=== PATIENT | female | born 1960 | race Caucasian/White ===

== ENCOUNTER 2018-06-11 03:25 | Emergency (ER) | payer BC, SELFPAY ==
[2018-06-11 03:26] VITALS: BP 159/104; PULSE 86; RESP 16; TEMP 36.7; O2SAT 96; BMI 28.6
[2018-06-11 03:30] VITALS: BP 145/100; PULSE 88; O2SAT 95
--- NOTE | 2018-06-11 04:26 | ED.VISSUMM ---
- ER Visit Summary Date of Service: 06/11/18 Chief Complaint: [] Lower leg pain and swelling with tingling History of Present Illness: The patient is a 58 F awoke with left lower calf swelling and foot swelling and tingling over the last 2-1/2 hours. It is getting better. It was much worse when she woke up per patient. She still has some tingling. She is never had this before. No history of DVT. No history of stroke or TIA. She had an patient CT angios for incidental finding on her spleen yesterday. She does not think that had do with anything in her left leg. Physical Examination: [] Vital signs reviewed General: Well-nourished well-developed Head: Normocephalic atraumatic Eyes: Pupils equal round and reactive to light extraocular movements intact ENT: TMs clear no hemotympanum no trauma Neck: Nontender full range of motion Cardiovascular: Regular rate rhythm no murmurs normal S1-S2 Respiratory: No distress clear to auscultation bilaterally chest nontender Abdomen: Soft nontender nondistended normal bowel sounds no masses Back: Nontender no CVA tenderness Extremities: Tenderness in the left calf. Positive Homans sign. Mild swelling of the left lower calf from a 1 cm more than the left on measurement. Skin: Normal color no trauma Neuro alert oriented cranial nerves II through XII intact normal strength sensation reflexes Test Results: [] Emergency Department Course and Treatment: [] Patient will have to have an outpatient ultrasound of her lower extremity. Have a low suspicion for stroke or TIA. She does have some numbness to this area as well. She has some pain in Homans sign. She may have a DVT. Treatment Plan: [] Disposition: [] Impression: [] Left lower extremity pain and swelling with paresthesia This note was generated with [employer] dictation software. It may contain incorrect words, spelling, and punctuation that were not noted in review of the chart prior to signing ED Disposition - Plan for ED Patient: Referrals: Cara Campbell MD [Primary Care Provider] -
--- NOTE | 2018-06-11 04:29 | ED.DEP ---
ED Disposition - Plan for ED Patient: Disposition: Home or Assisted Living Instructions: ED Paraesthesias Referrals: Cara Campbell MD [Primary Care Provider] - Additional Instructions: Follow-up for your ultrasound exam this morning
[2018-06-11 04:40] VITALS: PULSE 89; RESP 20; O2SAT 97
== END 2018-06-11 04:41 | disposition home or self-care (01) ==
PROVIDERS: Emergency Provider Emergency Medicine; Family Provider Internal Medicine; PCP Internal Medicine
DX: M79.662 Pain in left lower leg (principal); M79.89 Other specified soft tissue disorders; R20.2 Paresthesia of skin
CPT/HCPCS: 99282

== ENCOUNTER → 2018-06-11 10:22 | Outpatient (CLI) | payer BC, SELFPAY ==
[2018-06-11 03:26] VITALS: BMI 28.6
== END ==
PROVIDERS: Family Provider Internal Medicine; PCP Internal Medicine; Referring Provider Emergency Medicine; Visit Provider Emergency Medicine
DX: M79.89 Other specified soft tissue disorders (principal)
CPT/HCPCS: 93971

== ENCOUNTER 2019-12-10 16:14 | Emergency (ER) | payer BC, SELFPAY ==
[2019-12-10 16:16] VITALS: BP 151/104; PULSE 105; RESP 20; TEMP 37.6; O2SAT 98; BMI 27.9
--- NOTE | 2019-12-10 16:30 | ED.DCSUM_ITS ---
History of Present Illness Chief Complaint: Headache Detail of Chief Complaint: Neck and right lower back pinching severe pain Informant: Patient Onset: Hours - The pinching severe back pain started hours prior to presentation. She was rolling in bed., Days - Headache is been present for 3 days worse this morning. Context: Gradual Onset - Headache, Sudden Onset - Back pain Timing: Continuous - Headache is been continuous since onset. Back pain has improved markedly. Quality: Pain superior posterior neck/occiput Location: Right lower back Current Severity: Moderate Maximum Severity: Severe Worsened by: Back pain due to movement, headache nothing Relieved by: Nothing Associated Symptoms: Nausea Narrative: Patient is a middle-age woman who presents with headache for the past several days. The reason she presents to the emergency department because she developed severe right low back pain rolling in bed. She denies fever, chills night sweats. Denies double vision, blurred vision loss of vision. Denies p hotophobia. Denies photophobia. She states she is had back pain since her neck fusion. Neck fusion at multiple levels. She denies trouble with speech or swallowing. She complains of a full sensation in her superior anterior chest. This is not a new symptom. She denies shortness of breath. She does report nausea without vomiting diarrhea. She denies urologic symptoms. There is no history of renal ureterolithiasis. She denies radicular pain. There is no history of bowel or bladder dysfunction. Prior similar symptoms: Yes - With regards to the headache Recent Illness/Hospitalization: No - Past Medical History (1) Migraine headache Status: Acute Past Medical History - Allergies and Home Meds Allergies/Adverse Reactions: Allergies levofloxacin [From Levaquin] Allergy (Verified 10/21/15 12:43) Anaphylaxis Primary Care Physician: Cara Campbell MD [Primary Care Provider] - Prior records reviewed: Yes Surgical History: - - Cervical neck fusion Lives: Alone Smoking Status: Unknown if ever smoked Alcohol: None Drugs: None Review of Systems General: Denies: Chills, Fever, Malaise Eyes: Denies: Visual changes - bilaterally, Blurred Vision - bilaterally, Diplopia ENT: Denies: Rhinorrhea, Sore throat Cardiovascular: Reports: Chest pain - Please read HPI. Denies: Palpitations Respiratory: Denies: Dyspnea, Cough, Dyspnea on exertion Gastrointestinal: Reports: Nausea. Denies: Abdominal pain, Vomiting, Diarrhea Genitourinary: Denies: Dysuria, Hematuria, Frequency Musculoskeletal: Reports: Neck pain, Back pain. Denies: Myalgias, Arthralgias, Swelling, Extremity Pain, -, - Neurological: Reports: Headache. Denies: Weakness, Parasthesia, Numbness, -, - Endocrine: Denies: Polyuria, Polydipsia Hematologic: Denies: Easy bruising, Easy bleeding Physical Exam Vital Signs/Narrative: Vital Signs Temp Pulse Resp BP Pulse Ox 12/10/19 16:16 99.6 F H 105 H 20 H 151/104 H 98 Inital Vital Signs reviewed: Yes General: Well nourished, Well developed, No Acute Distress, - - Patient is very hard of hearing. Head: Normocephalic, Atraumatic Eyes: Perrl, EOMI. Negative for: Pale conjunctiva, Scleral icterus ENT: Moist mucous membranes, No rhinorrhea, TM's clear. Negative for: Dry mucous membranes, Nasal congestion Neck: Supple - Limited range of motion due to fusion., No lymphadenopathy, No JVD. Negative for: Nontender - Tenderness near the occiput. Cardiovascular: Regular rate, Regular rhythm, No murmurs, Normal S1, Normal S2 Respiratory: No distress, CTA bilaterally, Chest nontender Abdomen: Soft, Nontender, Nondistended Back: Nontender, Normal Inspection. Negative for: CVA tenderness Extremities: Nontender, No edema Skin: Normal color, No rash Neurological: Alert, Oriented x3, Cranial nerves II-XII grossly intact, Normal Strength, Normal Sensation, Normal DTR Psychological: - - Flat affect Diagnostic/Tx/Re-eval - Medical Decision Making Back pain is most likely musculoskeletal. Since she has no objective findings at this time no imaging or laboratory testing was ordered. Since she has history of migraines and this is prolonged we will treat with 25 mg of Benadryl, 10 mg of Reglan and 50 mg of Toradol IV push. Plan is to reassess in 30 to 60 minutes. Patient reports marked improvement. She would like to go home. I was informed of this by her nurse. Plan is to discharge to home ED Disposition - Plan for ED Patient: Disposition: Home or Assisted Living Diagnosis: Status migrainosus without intractable migraine, Back pain without radiculopathy Instructions: ED, Migraine (Classical), ED Back Care Tips, ED Back Pain Acute or Chronic Referrals: Cara Campbell MD [Primary Care Provider] - As Needed
[2019-12-10] MEDS: Ketorolac 30 MG/ML Syringe 15 MG IV (16:36)
[2019-12-10] MEDS: DiphenhydrAMINE 50 MG/ML Syringe 25 MG IV (16:37)
[2019-12-10] MEDS: Metoclopramide 10 MG/2 ML Vial IV (16:39)
[2019-12-10 18:04] VITALS: BP 118/74; PULSE 92; RESP 18
[2019-12-10 18:30] VITALS: PULSE 96
== END 2019-12-10 18:44 | disposition home or self-care (01) ==
LOC: ED 17:55
PROVIDERS: Emergency Provider Emergency Medicine; PCP Internal Medicine
DX: G43.901 Migraine, unspecified, not intractable, with status migrainosus (principal); M54.5 Low back pain
CPT/HCPCS: 96374; 96375; 99285; A4216

== ENCOUNTER → 2020-05-07 13:11 | Outpatient (CLI) | payer BC, SELFPAY ==
--- NOTE | 2020-05-07 13:13 | EKG12_ITS ---
Test Reason : PREOP Blood Pressure : / mmHG Vent. Rate : 102 BPM Atrial Rate : 102 BPM P-R Int : 164 ms QRS Dur : 076 ms QT Int : 340 ms P-R-T Axes : 067 062 059 degrees QTc Int : 443 ms Sinus tachycardia Otherwise normal ECG Confirmed by ARON WEATHERS, PRATIK ([id number]), editor farm journal GILA BEGUM ([id number]) on 05/08/2020 8:24:16 AM Referred By: Naresh Fernandez Confirmed By:PRATIK SHARP MD
[2020-05-07 14:45] LABS: Hematocrit 39.5 % (37-47); Hemoglobin 12.8 g/dL (12.0-15.0); Mean Corp Hgb Conc 32.4 g/dL (32-36); Mean Corpuscular Hgb 29.8 pg (27.0-32.0); Mean Corpuscular Volume 92.1 fL (81-99); Mean Platelet Vol. 10.3 fl (6.2-12.0); Platelet Count 340 K/mm3 (150-450); RBC Distribution Width SD 43.8 fl (35.1-43.9); Red Blood Count 4.29 M/mm3 (4.2-5.4); White Blood Count 7.7 K/mm3 (4.4-11.0)
[2020-05-07 15:09] LABS: Anion Gap 5 (5-15); BUN 21 mg/dL (7-18); BUN/Creat Ratio 27.6 RATIO (10-20); Calcium,Total 8.7 mg/dL (8.5-10.1); Chloride 106 mmol/L (98-107); Creatinine, Serum 0.76 mg/dL (0.55-1.02); EST Glomerular Filtration Rate 83 mL/min (>60); Est Glom Filt Rate - Afr Amer 100 mL/min (>60); Glucose 94 mg/dL (74-106); Potassium 3.4 mmol/L (3.5-5.1); Sodium Level 142 mmol/L (136-145)
== END ==
PROVIDERS: PCP Internal Medicine; Referring Provider Orthopaedic Surgery; Visit Provider Orthopaedic Surgery
DX: Z01.818 Encounter for other preprocedural examination (principal)
CPT/HCPCS: 36415; 80048; 85027; 93005

== ENCOUNTER → 2020-09-18 14:44 | Outpatient (CLI) | payer BC, SELFPAY ==
[2020-09-18 18:07] LABS: Creatinine, Serum 0.87 mg/dL (0.55-1.02); EST Glomerular Filtration Rate 71 mL/min (>60); Est Glom Filt Rate - Afr Amer 86 mL/min (>60)
== END ==
PROVIDERS: PCP Internal Medicine; Referring Provider Orthopaedic Surgery; Visit Provider Orthopaedic Surgery
DX: M25.511 Pain in right shoulder (principal); N28.9 Disorder of kidney and ureter, unspecified
CPT/HCPCS: 36415; 82565

== ENCOUNTER 2022-07-22 08:22 | Emergency (ER) | payer BC, SELFPAY ==
[2022-07-22 08:23] VITALS: BP 158/96; PULSE 67; RESP 14; TEMP 36.3; O2SAT 98; BMI 30.7
--- NOTE | 2022-07-22 08:41 | CT_ITS ---
STUDY: CT BRAIN WITHOUT CONTRAST REASON FOR EXAM: Female, 62 years old. Headache RADIATION DOSAGE (If Supplied By Facility): CTDIvol = ( 44.99 ) mGy, DLP = ( 829.85 ) mGycm TECHNIQUE: Transaxial CT imaging of the brain was performed without administration of intravenous contrast material. Individualized dose optimization techniques were used for this CT. COMPARISON: No relevant priors. FINDINGS: Normal soft tissue structures. Normal calvarium. Normal size ventricles and extra-axial spaces for the patient''s age. Normal white matter tracts of the cerebral hemispheres. Normal basal ganglia and thalami. Normal brainstem. Normal cerebellum. There is no intracranial hemorrhage. There are no findings of an acute ischemic infarction. Normal visualized paranasal sinuses. CT/Brain/Head without Contrast IMPRESSION: Normal unenhanced CT scan of the brain. Electronically Signed: Elliot Santiago MD at 9:15 EDT ,
--- NOTE | 2022-07-22 08:42 | EX.ED.VIS.HA ---
HPI History of Present Illness Chief Complaint: Headache Informant: patient Onset/Context/Timing Onset: Days Context: Gradual Quality -Headache: Positive for Similar Prior Headaches and Dull Current Severity: Mild Maximum Severity: Mild Associated Symptoms/Injury Associated Symptoms: Positive for Nausea, Visual Changes and Photophobia; Negative for Fever, Vomiting, Sore Throat, Sinus Pressure, Numbness, Tingling, Preceding Aura or Visual Loss Injury - SEN: Negative for Direct Trauma, Fall or Assault Narrative Narrative: 62-year-old female had 1 episode of vertigo years ago does not remember much about it she has had prior cervical fusion and hysterectomy. States she gets frequent headaches. She has a history of migraines. Said on Wednesday she had a headache. Currently only dull ache behind her right eye. But she said she just feels off. Feels kind of like she has vertigo but says is not exactly like she had before. Says it feels like the room is moving. She denies any weakness in her arms or legs. She has mild nausea but no vomiting or diarrhea. No fever. She is on no blood thinners. There is no family history of intracranial bleeds or brain aneurysms. She denies any recent trauma. Prior similar symptoms: Yes Recent Illness/Hospitalization: No PFSH PFSH Home Medications fentanyl 25 mcg/hr transdermal patch 25 mcg TRANSDERM. Q48H 10/21/15 [History Last Taken Unknown] sumatriptan succinate 6 mg/0.5 mL subcutaneous solution 6 mg subcut .X1 PRN 10/21/15 [History Last Taken Unknown] labetalol 200 mg tablet 200 mg PO BID 07/22/22 [History Last Taken Unknown] methocarbamol 500 mg tablet 500 mg PO 4X/DAY 07/22/22 [History Last Taken Unknown] spironolactone 25 mg tablet 25 mg PO DAILY 07/22/22 [History Last Taken Unknown] zolpidem 10 mg tablet 10 mg PO QHS 07/22/22 [History Last Taken Unknown] Allergy/AdvReac Type Severity Reaction Status Date / Time acetaminophen Allergy Other Verified 07/22/22 08:33 [From Darvocet-N] budesonide Allergy NEEDS Verified 07/22/22 08:33 [From Rhinocort Aqua] FOLLOW-UP duloxetine [From Cymbalta] Allergy PT UNSURE Verified 07/22/22 08:33 OF REACTION escitalopram [From Lexapro] Allergy NEEDS Verified 07/22/22 08:33 FOLLOW-UP fentanyl [From Actiq] Allergy PT UNSURE Verified 07/22/22 08:33 OF REACTION fluticasone [From Flonase] Allergy PT UNSURE Verified 07/22/22 08:33 OF REACTION hydrocodone [From Vicodin] Allergy Nausea Verified 07/22/22 08:33 hydromorphone [From Dilaudid] Allergy Other Verified 07/22/22 08:33 levofloxacin [From Levaquin] Allergy Anaphylaxis Verified 10/21/15 12:43 lidocaine [From Lidoderm] Allergy NEEDS Verified 07/22/22 08:33 FOLLOW-UP methadone Allergy NEEDS Verified 07/22/22 08:33 FOLLOW-UP pramipexole [From Mirapex] Allergy NEEDS Verified 07/22/22 08:33 FOLLOW-UP pregabalin [From Lyrica] Allergy NEEDS Verified 07/22/22 08:33 FOLLOW-UP propoxyphene Allergy Other Verified 07/22/22 08:33 [From Darvocet-N] tramadol [From Ultram] Allergy NEEDS Verified 07/22/22 08:33 FOLLOW-UP Social History Smoking Status: Never smoker ROS ROS ED ROS Narrative Headache. Dizziness. Review of Systems ROS Unobtainable: Denies due to encephalopathy Constitutional Constitutional ED: Denies chills or fever(s) Eyes Eyes: Reports change in vision; Denies blurry vision ENT ENT ED: Denies ear pain Cardiovascular Cardiovascular: Denies chest pain Respiratory/Chest Respiratory/Chest: Denies cough or dyspnea Gastrointestinal Gastrointestinal: Reports nausea; Denies abdominal pain, constipation, diarrhea, melena or vomiting Genitourinary Genitourinary ED: Denies dysuria or hematuria Musculoskeletal Musculoskeletal: Denies arthralgias Integumentary Denies abscess Neurologic Neurologic: Reports headache(s); Denies paresthesias or weakness Psychiatric Psychiatric: Denies anxiety or depression Endocrine Endocrinology: Denies polydipsia or polyphagia Hematologic/Lymphatic Hematologic/Lymphatic: Denies easy bleeding Allergic/Immunologic Allergic/Immunologic ED: Denies mouth swelling EXAM Physical Exam Narrative Exam Narrative: Well-appearing 62-year-old female. Vital signs are stable afebrile. Initial blood pressure 158/96. She does not look septic or toxic. She is in no distress. H EENT exam unremarkable. Pupils round reactive light. Extra motions the patient may possibly have a internuclear ophthalmoplegia. Her right eye seems to have difficulty moving medially. No facial droop. Normal speech. No trauma to her face or head. TMs are normal bilaterally. She does have photophobia when she opens her eyes. Neck nontender. She has limited flexion extension due to a prior multilevel fusion. No meningismus. No lymphadenopathy. Lungs clear to auscultation. Heart regular rhythm no murmur. Abdomen soft nontender. Moving all 4 extremities. Neurologically she is awake and alert with no focal motor deficits. 5 of 5 transferrer strength. Dorsi plantarflexion intact. No drift of either upper or lower extremities. Fingertip to nose within normal limits. NIH score is 0. 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 Const Vital Signs: 07/22/22 08:23 07/22/22 11:39 Temperature 97.3 F L Temperature Source Oral Pulse Rate 67 72 Respiratory Rate 14 15 Blood Pressure 158/96 H 138/76 H Blood Pressure Mean 116 96 Pulse Ox 98 97 Oxygen Delivery Method Room Air Room Air Positive well nourished and well developed; Negative for cachectic, contractures or unkempt General Appearance ED: well developed and NAD; Negative for unkempt, cachectic, contractures, cyanotic or diaphoretic Nutritional Appearance: Negative for cachectic HEENT Reports normocephalic, TM's clear and moist mucous membranes; Denies dry mucous membranes atraumatic; Negative for trauma, tenderness, temporal artery tenderness or vesicular rash Face and Sinus: Negative for sinus tenderness Tympanic Membrane ED: Yes TM's clear Mouth ED: No dry mucous membranes Mouth: No dry mucous membranes Eyes PERRL; Negative for EOMs intact bilaterally Eyes Narrative: Both eyes deviate upward and downward without any difficulty. Both eyes deviate to the right without problem. The left eye appears to have possibly a 3rd nerve palsy with loss of medial deviation of the left eye only. The right eye has normal both medial and lateral deviation. Pupils are equal symmetrically in both constrict to light. There is no dilatation. Vision is improved with with 1 eye closed. General Eye ED: Negative for pale conjunctiva or scleral icterus Neck no lymphadenopathy, supple, no meningeal signs and no JVD Neck Narrative: Limited flexion extension due to multilevel fusion. General: Negative for tenderness Resp normal respiratory effort and clear to auscultation bilaterally Effort and Inspection: Negative for retractions Auscultation: Negative for rales, rhonchi or wheezes Cardio regular rate, regular rhythm, S1 normal heart sound, S2 normal heart sound and no murmurs Rate: Negative for bradycardia or tachycardic Rhythm: Negative for abnormal rhythm GI non-tender and non-distended Auscultation: normoactive bowel sounds Palpation: soft; Negative for firm, tender or guarding Back/Spine no CVA tenderness General Back: Negative for CVA tenderness Cervical Spine: Negative for cervical spine tenderness Thoracic Spine / Upper Back: Negative for thoracic spinal tenderness Lumbar Spine / Lower Back: Negative for lumbar spinal tenderness Extremity normal to inspection, full ROM and normal capillary refill General Extremety ED: Negative for edema or tenderness General Extremity: Negative for edema Neuro oriented x3, CN's II-XII intact bilaterally and no sensory deficits noted Sensorium / Orientation: awake, alert, oriented to person, oriented to place and oriented to time; Negative for orientation impaired or lethargic Coordination / Balance: [id number] test normal Speech: speech normal Motor Exam: strength 5/5 throughout Psych mental status grossly normal Appearance: Negative for unkempt Attitude: No agitated Mood & Affect: Negative for depressed, anxious or tearful Skin General Skin Exam: elasticity normal Lesions: no lesions Rashes: no rashes NIHSS NIHSS Initial: 1a Level of Consciousness: 0 1b LOC Questions (Score 2 if aphasic/stupor): 0 Total Score: 0 MDM MDM MDM Narrative Medical decision making narrative: 62-year-old female with frequent history of migraine headaches. Had a headache on Wednesday and today. But it is very similar to prior headaches and not very severe at this time. She also has some sensation of dizziness. Prior history of vertigo. Hallpike is negative at this time. Neurologic exam is normal except what appears to be a right eye palsy regarding medial movement consistent with an internuclear ophthalmoplegia. She will be treated with IV Zofran for nausea. Antivert to see if it helps her dizziness. I am going obtain a CT of her brain. I do not think she needs any lab work at this time. Discussed the patient's case with ophthalmology on-call Dr. Efraín Cunningham. We will obtain screening labs and a have ordered an MRI with and without contrast of the patient's brain for possible internuclear ophthalmoplegia. Repeat exam unchanged. Patient is doing well at 10:50 AM awaiting MRI. MRI with and without contrast was read as negative per the radiologist. I went over all of her test results with the patient and family. She will be discharged home. She will follow-up with ophthalmology in the next day or so. She knows not to drive and be careful with steps because she could easily fall. History & Record Review Discussion w/independent historian: Patient Lab Data Attestation: I reviewed the patient's lab results. Lab results narrative: CBC normal. White count of 7. H&H 12 and 38. Platelets 326. Electrolytes unremarkable gap of 6. BUN 25 creatinine 0.75. Glucose 114. CAT scan of brain was unremarkable. Labs: Laboratory Results - last 24 hr 07/22/22 07/22/22 08:26 08:26 WBC 7.3 RBC 4.12 L Hgb 12.3 Hct 38.3 MCV 93.0 MCH 29.9 MCHC 32.1 RDW Std Deviation 45.1 H RDW Coeff of Tressa 13.2 Plt Count 326 MPV 10.1 Immature Gran % (Auto) 0.300 Neut % (Auto) 64.4 Lymph % (Auto) 25.6 [place] % (Auto) 8.2 Eos % (Auto) 1.1 Baso % (Auto) 0.4 Absolute Neuts (auto) 4.7 Absolute Lymphs (auto) 1.88 Nucleated RBC % 0 Sodium 141 Potassium 4.1 Chloride 105 Carbon Dioxide 30.0 Anion Gap 6 BUN 25 H Creatinine 0.75 Estim Creat Clear Calc 71.78 Est GFR (MDRD) Af Amer 101 Est GFR (MDRD) Non-Af 83 BUN/Creatinine Ratio 33.2 H Glucose 114 H Calcium 9.2 Radiography Diagnostic Testing: Clinical Impression(s) from Imaging Studies Brain CT 07/22/22 08:41 IMPRESSION: Normal unenhanced CT scan of the brain. Electronically Signed: Elliot Santiago MD at 9:15 EDT , Brain MRI 07/22/22 10:03 IMPRESSION: Normal unenhanced and enhanced MRI of the brain. Electronically Signed: Anders Varags MD at 13:05 EDT , Discharge Plan Triage Chief Complaint: Headache ED Provider: Jonathon Bowden Dx/Rx/DC Orders Clinical Impression: Headache Prescriptions: No Action sumatriptan succinate 6 MG/0.5 ML solution 6 mg subcut .X1 PRN fentanyl 25 MCG patch 25 mcg TRANSDERM. Q48H methocarbamol 500 mg tablet 500 mg PO 4X/DAY Label Comments: TAKE 1 TABLET BY MOUTH 4 TIMES DAILY NEEDED labetalol 200 mg tablet 200 mg PO BID spironolactone 25 mg tablet 25 mg PO DAILY Label Comments: TAKE 1 TABLET BY MOUTH DAILY zolpidem 10 mg tablet 10 mg PO QHS Label Comments: TAKE 1 TABLET BY MOUTH AT NIGHT NEEDED FOR SLEEP Primary Care Provider: Cara Campbell Referrals: Cara Campbell MD [Primary Care Provider] - Efraín Cunningham MD [Med Staff - Active Staff] - As soon as possible (Call [facility] today and get set up to be seen for an appointment either today, tomorrow and no later than Wednesday. I spoke to the eye doctor that was on-call today.) Activity Restrictions/Additional Instructions: Your labs, CAT scan and MRI today were unremarkable. There is no signs of stroke nor any aneurysm nor any masses. 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 Which is basically your right eye is not moving inward as it should. The machine hose cutter will further evaluate you for this and any other eye problems. No driving at this time until this improves. Be careful on steps because you could fall. Disposition Disposition: Home, Self Care
[2022-07-22] MEDS: Ondansetron 4 MG/2 ML Vial IV (08:47)
[2022-07-22] MEDS: Meclizine HCl 25 MG Tablet PO (08:47)
--- NOTE | 2022-07-22 10:03 | MRI_ITS ---
STUDY: MRI BRAIN WITH AND WITHOUT CONTRAST REASON FOR EXAM: Female, 62 years old. 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 Attention EMIL area TECHNIQUE: Standardized multiplanar fat and water weighted pulse sequences were obtained. 16ml iv clariscan was administered for the contrast portion of the examination. COMPARISON: Head CT dated July 22, 2022 FINDINGS: Normal size of the ventricles and extra-axial spaces for the patient''s age. Normal white matter tracts of the supratentorial brain. There is no evidence for recent intracranial ischemia or other cause of cytotoxic edema on diffusion weighted imaging (DWI). Normal T2* images of the brain without demonstrated susceptibility artifact. There is no demonstrated hemosiderin stain. There are no demyelinating plagues of the supratentorial brain, brainstem or cerebellum. There are no findings suspicious for multiple sclerosis (MS). Normal bilateral basal ganglia. Normal thalami. There is no extra-axial fluid accumulation. Normal flow voids within the major intracranial circulation suggesting patency by spin echo criteria. Normal venous enhancement. There is no enhancing intra-axial or extra-axial abnormality. There are no abnormal lesions or enhancement of the brain parenchyma or meninges or dura. Normal sella turcica, pituitary gland, infundibular stalk, optic chiasm and hypothalamus. Normal tectal plate and pineal gland. Normal midbrain, emil and medulla. Normal cerebellum. Normal basal cisterns. Normal bilateral temporal bones. Normal bilateral internal auditory canals. No demonstrated orbital abnormality, within the constraints of a routine brain study. Normal visualized paranasal sinuses. Normal calvarium and skull base. Normal visualized soft tissue structures. Normal visualized upper cervical spine. MRI/Brain W/WO Contrast IMPRESSION: Normal unenhanced and enhanced MRI of the brain. Electronically Signed: Anders Vargas MD at 13:05 EDT ,
[2022-07-22 10:18] LABS: Absolute Lymphocyte Count 1.88 X10^3/uL (0.83-4.51); Absolute Neutrophil Count 4.7 X10^3/uL (2.0-7.7); Basophil# 0.03 X10^3/uL; Basophil% 0.4 % (0-1); Eosinophil# 0.08 X10^3/uL; Eosinophils% 1.1 % (0-5); Hematocrit 38.3 % (37-47); Hemoglobin 12.3 g/dL (12.0-15.0); Lymphocyte # 1.88 X10^3/ul (0.83-4.51); Lymphocyte % 25.6 % (19-41); Mean Corp Hgb Conc 32.1 g/dL (32-36); Mean Corpuscular Hgb 29.9 pg (27.0-32.0); Mean Platelet Vol. 10.1 fl (6.2-12.0); Monocyte% 8.2 % (0-10); NRBC Flagged by Analyzer 0 % (0-5); Neutrophil # 4.73 X10^3/uL (2.7-7.7); Neutrophil % 64.4 % (47-70); Platelet Count 326 K/mm3 (150-450); RBC Distribution Width CV 13.2 % (11.6-14.6); RBC Distribution Width SD 45.1 fl (35.1-43.9); Red Blood Count 4.12 M/mm3 (4.2-5.4); White Blood Count 7.3 K/mm3 (4.4-11.0)
[2022-07-22 10:31] LABS: Anion Gap 6 (5-15); BUN 25 mg/dL (7-18); BUN/Creat Ratio 33.2 RATIO (10-20); Calcium,Total 9.2 mg/dL (8.5-10.1); Chloride 105 mmol/L (98-107); Creatinine, Serum 0.75 mg/dL (0.55-1.02); EST Glomerular Filtration Rate 83 mL/min (>60); Est Glom Filt Rate - Afr Amer 101 mL/min (>60); Estimated Creatinine Clearance 71.78 ml/min; Glucose 114 mg/dL (74-106); Potassium 4.1 mmol/L (3.5-5.1); Sodium Level 141 mmol/L (136-145)
[2022-07-22 11:39] VITALS: BP 138/76; PULSE 72; RESP 15; O2SAT 97
[2022-07-22 13:36] VITALS: BP 139/88; PULSE 76; RESP 15; O2SAT 97
== END 2022-07-22 13:37 | disposition home or self-care (01) ==
PROVIDERS: Emergency Provider Emergency Medicine; PCP Internal Medicine; Visit Provider Emergency Medicine
DX: R51.9 Headache, unspecified (principal); R11.0 Nausea
CPT/HCPCS: 70450; 70553; 80048; 85025; 96374; 99285; A9575; A4216; J2405